=== PATIENT | female | born 1935 | race Caucasian/White ===

== ENCOUNTER 2019-03-17 11:24 | Inpatient (IN) ==
[2019-03-17] MEDS ORDERED: Aspirin 81 MG TAB.CHEW PO ONE (11:50)
[2019-03-17] MEDS ORDERED: Nitroglycerin 0.4 MG TAB.SUBL SL PRN (11:50)
[2019-03-17 11:59] LABS: Basophils % 0.5 %; Eosinophils # 0.1 K/mcL (0.0-0.6); Eosinophils % 1.1 %; Hematocrit 38.5 % (35.3-44.9); Hemoglobin 12.8 g/dL (11.5-15.4); Immature Granulocytes % 0.2 % (0-4); Lymphocytes # 0.8 K/mcL (0.6-4.6); Lymphocytes % 10.1 %; Mean Corpuscular HGB Conc 33.2 g/dL (31.6-35.5); Mean Corpuscular Hemoglobin 30.1 pg (28.0-33.3); Mean Corpuscular Volume 90.6 fL (83.0-100.0); Mean Platelet Volume 9.6 fL (9.4-12.4); Monocytes # 0.8 K/mcL (0.0-1.3); Monocytes % 10.3 %; Neutrophils # 6.2 K/mcL (1.6-8.9); Platelet Count 229 K/mcL (140-400); Red Blood Count 4.25 M/mcL (3.82-4.97); Red Cell Distribution Width 13.3 % (11.5-14.5); Segmented Neutrophils % 77.8 %
[2019-03-17 12:23] LABS: BUN/Creatinine Ratio 20 (6-26); Blood Urea Nitrogen 24 mg/dL (8-23); Calcium 9.6 mg/dL (8.6-10.3); Carbon Dioxide 29 mEq/L (23-29); Chloride 97 mEq/L (98-107); Glucose 125 mg/dL (70-105); Osmolality,Calculated 286 (280-300); Potassium 3.8 mEq/L (3.5-5.1); Sodium 135 mEq/L (136-145); eGFR For African Americans 53 (> 60); eGFR For Non-African Americans 44 (> 60)
[2019-03-17 12:24] LABS: Troponin I < 0.03 ng/mL (< 0.04)
[2019-03-17] MEDS ORDERED: *HR* LORazepam 1 MG TABLET PO PRN (15:04)
[2019-03-17] MEDS ORDERED: Acetaminophen 325 MG TABLET PO PRN (15:32)
[2019-03-17] MEDS: Insulin LISPRO 300 UNITS/3 ML VIAL SQ SCH ×2 (17:19→20:29)
[2019-03-17] MEDS ORDERED: tiZANidine 4 MG TABLET PO ONE (20:00)
[2019-03-17] MEDS ORDERED: *HR* LORazepam 1 MG TABLET PO SCH (21:00)
[2019-03-18 05:32] LABS: BUN/Creatinine Ratio 22 (6-26); Blood Urea Nitrogen 27 mg/dL (8-23); Calcium 9.4 mg/dL (8.6-10.3); Carbon Dioxide 28 mEq/L (23-29); Chloride 97 mEq/L (98-107); Glucose 105 mg/dL (70-105); Osmolality,Calculated 283 (280-300); Potassium 3.7 mEq/L (3.5-5.1); Sodium 134 mEq/L (136-145); Troponin I < 0.03 ng/mL (< 0.04); eGFR For African Americans 50 (> 60); eGFR For Non-African Americans 41 (> 60)
[2019-03-18] MEDS ORDERED: Regadenoson 0.4 MG/5 ML SYRINGE IVP ONE (06:17)
[2019-03-18] MEDS: Insulin LISPRO 300 UNITS/3 ML VIAL SQ SCH ×4 (07:16→20:47)
[2019-03-18] MEDS ORDERED: D5% in Water 1,000 ML IVC PRN (08:07)
[2019-03-18] MEDS ORDERED: Dextrose Gel 15 GM/37.5 ML TUBE PO PRN ×2 (08:07)
[2019-03-18] MEDS ORDERED: *HR* Dextrose 50 % in Water (Syg) 50 ML SYRINGE IVP PRN (08:07)
[2019-03-18] MEDS ORDERED: NON-FORMULARY MEDICATION 1 EACH EACH (Ezetimibe [Zetia] 10 MG) PO SCH (09:00)
[2019-03-18] MEDS: Valsartan 160 MG TABLET PO SCH (12:01)
[2019-03-18] MEDS: amLODIPine 5 MG TABLET PO SCH (12:01)
[2019-03-18] MEDS: Aspirin Enteric Coated 81 MG Tablet PO SCH (12:02)
[2019-03-18] MEDS: hydroCHLOROthiazide 25 MG TABLET PO SCH (12:02)
[2019-03-18] MEDS: predniSONE 20 MG TABLET PO SCH (13:08)
[2019-03-18] MEDS ORDERED: Acetaminophen/Aspirin/Caffeine TABLET PO PRN (13:13)
[2019-03-18] MEDS: *HR* Heparin 5,000 UNIT/ML VIAL SQ SCH (20:48)
[2019-03-18] MEDS ORDERED: Insulin DETEMIR 100 UNIT/ML X5UNITS SQ SCH (21:00)
[2019-03-19] MEDS: *HR* Heparin 5,000 UNIT/ML VIAL SQ SCH ×2 (05:20→13:51)
[2019-03-19 06:09] LABS: Basophils % 0.1 %; Eosinophils % 0.1 %; Hematocrit 36.7 % (35.3-44.9); Immature Granulocytes % 0.5 % (0-4); Lymphocytes # 0.7 K/mcL (0.6-4.6); Lymphocytes % 9.1 %; Mean Corpuscular HGB Conc 35.4 g/dL (31.6-35.5); Mean Corpuscular Hemoglobin 30.4 pg (28.0-33.3); Mean Corpuscular Volume 85.9 fL (83.0-100.0); Mean Platelet Volume 9.5 fL (9.4-12.4); Monocytes # 0.6 K/mcL (0.0-1.3); Monocytes % 7.8 %; Neutrophils # 6.2 K/mcL (1.6-8.9); Platelet Count 235 K/mcL (140-400); Red Blood Count 4.27 M/mcL (3.82-4.97); Red Cell Distribution Width 13.1 % (11.5-14.5); Segmented Neutrophils % 82.4 %; White Blood Count 7.6 K/mcL (4.3-11.1)
[2019-03-19 06:32] LABS: Calcium 9.6 mg/dL (8.6-10.3); Magnesium 1.8 mg/dL (1.6-2.6); Potassium 3.7 mEq/L (3.5-5.1)
[2019-03-19] MEDS: amLODIPine 5 MG TABLET PO SCH (07:49)
[2019-03-19] MEDS: Valsartan 160 MG TABLET PO SCH (07:49)
[2019-03-19] MEDS: hydroCHLOROthiazide 25 MG TABLET PO SCH (07:51)
[2019-03-19] MEDS: predniSONE 20 MG TABLET PO SCH (07:51)
[2019-03-19] MEDS: Aspirin Enteric Coated 81 MG Tablet PO SCH (07:51)
[2019-03-19 08:48] LABS: Estimated Average Glucose 151 mg/dl
[2019-03-19] MEDS: Insulin LISPRO 300 UNITS/3 ML VIAL SQ SCH ×2 (09:04→12:08)
[2019-03-19 16:10] VITALS: BP 116/62
[2019-03-20] MEDS ORDERED: Ergocalciferol (VIT D2) 50,000 UNIT (1.25MG) CAP PO SCH (18:00)
== END 2019-03-19 16:40 | disposition short-term general hospital (02) | DRG 303 ==
LOC: 2ANU 11:24 → EMEROOARM 11:24 → 2ANU 15:17 → SUATTDRO 03-18 15:30
PROVIDERS: ADMIT Internal Medicine; ATTEND Pharmacist

== ENCOUNTER 2019-07-24 15:47 | Inpatient (IN) ==
[2019-07-24 16:31] LABS: Basophils % 0.5 %; Eosinophils # 0.4 K/mcL (0.0-0.6); Eosinophils % 5.9 %; Hematocrit 34.4 % (35.3-44.9); Hemoglobin 11.2 g/dL (11.5-15.4); Immature Granulocytes % 0.3 % (0-4); Lymphocytes # 0.6 K/mcL (0.6-4.6); Lymphocytes % 8.5 %; Mean Corpuscular HGB Conc 32.6 g/dL (31.6-35.5); Mean Corpuscular Hemoglobin 29.7 pg (28.0-33.3); Mean Corpuscular Volume 91.2 fL (83.0-100.0); Mean Platelet Volume 9.9 fL (9.4-12.4); Monocytes # 1.1 K/mcL (0.0-1.3); Monocytes % 14.9 %; Neutrophils # 5.1 K/mcL (1.6-8.9); Platelet Count 165 K/mcL (140-400); Red Blood Count 3.77 M/mcL (3.82-4.97); Red Cell Distribution Width 13.3 % (11.5-14.5); Segmented Neutrophils % 69.9 %; White Blood Count 7.3 K/mcL (4.3-11.1)
[2019-07-24] MEDS ORDERED: Azithromycin 500 MG in 0.9 % Sodium Chloride 250 ML IVPB ONE (16:40)
[2019-07-24] MEDS ORDERED: cefTRIAXone 1,000 MG in Water for inj. (sterile) 10 ML IVP ONE (16:40)
[2019-07-24 17:01] LABS: BUN/Creatinine Ratio 16 (6-26); Blood Urea Nitrogen 15 mg/dL (8-23); Calcium 9.4 mg/dL (8.6-10.3); Carbon Dioxide 26 mEq/L (23-29); Chloride 97 mEq/L (98-107); Glucose 90 mg/dL (70-105); Osmolality,Calculated 272 (280-300); Potassium 4.1 mEq/L (3.5-5.1); Sodium 131 mEq/L (136-145); Troponin I 0.04 ng/mL (< 0.04); eGFR For African Americans > 60 (> 60); eGFR For Non-African Americans 58 (> 60)
[2019-07-24] MEDS ORDERED: Aspirin 325 MG TABLET PO ONE (17:12)
[2019-07-24] MEDS ORDERED: Furosemide 20 MG/2 ML VIAL IVP ONE (17:13)
[2019-07-24] MEDS: *HR* LORazepam 1 MG TABLET PO PRN (23:12)
[2019-07-24] MEDS: amLODIPine 5 MG TABLET PO SCH (23:12)
[2019-07-24] MEDS: carvediloL 25 MG TABLET PO SCH (23:12)
[2019-07-25] MEDS: *HR* Heparin 5,000 UNIT/ML VIAL SQ SCH ×4 (01:15→21:34)
[2019-07-25 06:01] LABS: Basophils % 0.6 %; Eosinophils # 0.3 K/mcL (0.0-0.6); Eosinophils % 5.5 %; Immature Granulocytes % 0.3 % (0-4); Lymphocytes # 0.6 K/mcL (0.6-4.6); Mean Corpuscular HGB Conc 33.1 g/dL (31.6-35.5); Mean Corpuscular Hemoglobin 30.1 pg (28.0-33.3); Mean Corpuscular Volume 90.9 fL (83.0-100.0); Monocytes # 0.9 K/mcL (0.0-1.3); Monocytes % 13.7 %; Neutrophils # 4.4 K/mcL (1.6-8.9); Platelet Count 145 K/mcL (140-400); Red Blood Count 3.19 M/mcL (3.82-4.97); Red Cell Distribution Width 13.4 % (11.5-14.5); Segmented Neutrophils % 70.9 %; White Blood Count 6.2 K/mcL (4.3-11.1)
[2019-07-25 06:03] LABS: Hemoglobin 9.6 g/dL (11.5-15.4)
[2019-07-25 06:25] LABS: Alanine Aminotransferase 14 Units/L (7-52); Albumin 3.3 g/dL (3.5-5.7); Albumin/Globulin Ratio 1.6 (1.1-2.2); Alkaline Phosphatase 58 Units/L (34-104); Aspartate Amino Transferase 15 Units/L (13-39); BUN/Creatinine Ratio 17 (6-26); Bilirubin,Total 0.4 mg/dL (0.3-1.0); Blood Urea Nitrogen 15 mg/dL (8-23); Calcium 8.7 mg/dL (8.6-10.3); Carbon Dioxide 29 mEq/L (23-29); Chloride 98 mEq/L (98-107); Globulin 2.1 g/dL (2.4-3.5); Glucose 88 mg/dL (70-105); Osmolality,Calculated 276 (280-300); Potassium 3.5 mEq/L (3.5-5.1); Sodium 133 mEq/L (136-145); Total Protein 5.4 g/dL (6.4-8.9); eGFR For African Americans > 60 (> 60); eGFR For Non-African Americans 60 (> 60)
[2019-07-25 06:26] LABS: Troponin I 0.05 ng/mL (< 0.04)
[2019-07-25] MEDS ORDERED: Ipratropium/Albuterol Neb 3 ML IH PRN (06:45)
[2019-07-25] MEDS ORDERED: Insulin LISPRO 300 UNITS/3 ML VIAL SQ SCH ×2 (07:30→12:00)
[2019-07-25] MEDS: Furosemide 20 MG/2 ML VIAL IVP SCH ×2 (10:02→21:34)
[2019-07-25] MEDS: Aspirin Enteric Coated 81 MG Tablet PO SCH (10:03)
[2019-07-25] MEDS: carvediloL 25 MG TABLET PO SCH ×2 (10:03→17:05)
[2019-07-25] MEDS: Valsartan 160 MG TABLET PO SCH (10:04)
[2019-07-25] MEDS: amLODIPine 5 MG TABLET PO SCH (10:04)
[2019-07-25] MEDS: Fluticasone Propionate Nasal 50 MCG/SPRAY BOTTLE NS SCH (10:12)
[2019-07-25] MEDS: (Ezetimibe [Zetia] 10 MG) PO SCH (10:13)
[2019-07-25] MEDS: Ipratropium/Albuterol Neb 3 ML IH SCH ×4 (10:25→20:25)
[2019-07-25] MEDS: predniSONE 20 MG TABLET PO SCH (10:27)
[2019-07-25 11:29] LABS: Adenovirus Not Detected (Not Detect); Bordetella Pertussis Not Detected (Not Detect); Chlamydophila pneumoniae Not Detected (Not Detect); Coronavirus 229E Not Detected (Not Detect); Coronavirus HKU1 Not Detected (Not Detect); Coronavirus NL63 Not Detected (Not Detect); Coronavirus OC43 Not Detected (Not Detect); Human Metapneumovirus Not Detected (Not Detect); Human Rhinovirus/Enterovirus Not Detected (Not Detect); Influenza A Subtype 2009 H1 Not Detected (Not Detect); Influenza B Not Detected (Not Detect); Mycoplasma pneumoniae Not Detected (Not Detect); Parainfluenza Virus 1 Not Detected (Not Detect); Parainfluenza Virus 2 Not Detected (Not Detect); Parainfluenza Virus 3 Not Detected (Not Detect); Parainfluenza Virus 4 Not Detected (Not Detect); Respiratory Syncytial Virus Not Detected (Not Detect)
[2019-07-25] MEDS ORDERED: Isovue-370 500 ML BOTTLE IVP ONE ×2 (13:19→16:08)
[2019-07-25] MEDS ORDERED: Azithromycin 250 MG TABLET PO SCH (13:45)
[2019-07-25] MEDS: cefTRIAXone 1,000 MG in Water for inj. (sterile) 10 ML IVP SCH (15:12)
[2019-07-25 15:53] LABS: ABG Base Excess 4 mEq/L (-2 to 3); ABG HCO3 29 mEq/L (21-27); ABG Oxygen Saturation 89 % (95-98); ABG PCO2 42 mmHg (35-45); ABG PH 7.44 pH Units (7.32-7.45); ABG PO2 54 mmHg (85-104); ABG TCO2 30 mEq/L (20-26)
[2019-07-25] MEDS: Insulin LISPRO 300 UNITS/3 ML VIAL SQ SCH ×2 (17:04→21:36)
[2019-07-25] MEDS: *HR* LORazepam 1 MG TABLET PO PRN (21:47)
[2019-07-26] MEDS: Ipratropium/Albuterol Neb 3 ML IH SCH ×7 (00:19→23:47)
[2019-07-26 05:28] LABS: Hematocrit 28.5 % (35.3-44.9); Hemoglobin 9.5 g/dL (11.5-15.4); Mean Corpuscular HGB Conc 33.3 g/dL (31.6-35.5); Mean Corpuscular Hemoglobin 30.6 pg (28.0-33.3); Mean Corpuscular Volume 91.9 fL (83.0-100.0); Mean Platelet Volume 10.5 fL (9.4-12.4); Platelet Count 158 K/mcL (140-400); Red Cell Distribution Width 13.5 % (11.5-14.5)
[2019-07-26 05:47] LABS: Potassium 3.7 mEq/L (3.5-5.1)
[2019-07-26] MEDS: *HR* Heparin 5,000 UNIT/ML VIAL SQ SCH ×3 (05:49→21:47)
[2019-07-26] MEDS: amLODIPine 5 MG TABLET PO SCH (10:00)
[2019-07-26] MEDS: predniSONE 20 MG TABLET PO SCH (10:00)
[2019-07-26] MEDS: Valsartan 160 MG TABLET PO SCH (10:00)
[2019-07-26] MEDS: Aspirin Enteric Coated 81 MG Tablet PO SCH (10:00)
[2019-07-26] MEDS: Furosemide 20 MG/2 ML VIAL IVP SCH (10:01)
[2019-07-26] MEDS: carvediloL 25 MG TABLET PO SCH ×2 (10:01→17:39)
[2019-07-26] MEDS: cefTRIAXone 1,000 MG in Water for inj. (sterile) 10 ML IVP SCH (10:02)
[2019-07-26] MEDS: (Ezetimibe [Zetia] 10 MG) PO SCH (10:03)
[2019-07-26] MEDS: Fluticasone Propionate Nasal 50 MCG/SPRAY BOTTLE NS SCH (10:03)
[2019-07-26] MEDS: Insulin LISPRO 300 UNITS/3 ML VIAL SQ SCH ×4 (10:04→21:46)
[2019-07-26] MEDS ORDERED: Furosemide 20 MG TABLET PO SCH (17:00)
[2019-07-26] MEDS: *HR* LORazepam 1 MG TABLET PO PRN (21:47)
[2019-07-27] MEDS: Ipratropium/Albuterol Neb 3 ML IH SCH ×6 (03:20→23:54)
[2019-07-27] MEDS: *HR* Heparin 5,000 UNIT/ML VIAL SQ SCH ×3 (05:25→21:48)
[2019-07-27 06:35] LABS: Hematocrit 28.4 % (35.3-44.9); Hemoglobin 9.1 g/dL (11.5-15.4); Mean Corpuscular Hemoglobin 29.7 pg (28.0-33.3); Mean Corpuscular Volume 92.8 fL (83.0-100.0); Mean Platelet Volume 10.1 fL (9.4-12.4); Platelet Count 189 K/mcL (140-400); Red Blood Count 3.06 M/mcL (3.82-4.97); Red Cell Distribution Width 13.3 % (11.5-14.5); White Blood Count 5.7 K/mcL (4.3-11.1)
[2019-07-27 06:55] LABS: Calcium 8.7 mg/dL (8.6-10.3); Potassium 4.2 mEq/L (3.5-5.1)
[2019-07-27] MEDS: Insulin LISPRO 300 UNITS/3 ML VIAL SQ SCH ×4 (08:19→21:49)
[2019-07-27] MEDS ORDERED: Furosemide 20 MG TABLET PO SCH (09:00)
[2019-07-27] MEDS: Aspirin Enteric Coated 81 MG Tablet PO SCH (09:06)
[2019-07-27] MEDS: carvediloL 25 MG TABLET PO SCH ×2 (09:06→16:28)
[2019-07-27] MEDS: Valsartan 160 MG TABLET PO SCH (09:08)
[2019-07-27] MEDS: Fluticasone Propionate Nasal 50 MCG/SPRAY BOTTLE NS SCH (09:09)
[2019-07-27] MEDS: (Ezetimibe [Zetia] 10 MG) PO SCH (09:11)
[2019-07-27] MEDS: amLODIPine 5 MG TABLET PO SCH (09:11)
[2019-07-27] MEDS: predniSONE 20 MG TABLET PO SCH (09:12)
[2019-07-27] MEDS: cefTRIAXone 1,000 MG in Water for inj. (sterile) 10 ML IVP SCH (09:53)
[2019-07-27] MEDS: *HR* LORazepam 1 MG TABLET PO PRN (21:54)
[2019-07-28 03:40] LABS: BUN/Creatinine Ratio 29 (6-26); Blood Urea Nitrogen 29 mg/dL (8-23); Calcium 8.7 mg/dL (8.6-10.3); Carbon Dioxide 27 mEq/L (23-29); Chloride 96 mEq/L (98-107); Glucose 96 mg/dL (70-105); Osmolality,Calculated 278 (280-300); Potassium 4.1 mEq/L (3.5-5.1); Sodium 131 mEq/L (136-145); eGFR For African Americans > 60 (> 60); eGFR For Non-African Americans 52 (> 60)
[2019-07-28] MEDS: Ipratropium/Albuterol Neb 3 ML IH SCH ×5 (04:01→20:07)
[2019-07-28] MEDS: *HR* Heparin 5,000 UNIT/ML VIAL SQ SCH ×3 (05:55→20:37)
[2019-07-28] MEDS ORDERED: Furosemide 20 MG TABLET PO PRN (07:47)
[2019-07-28] MEDS: Insulin LISPRO 300 UNITS/3 ML VIAL SQ SCH ×4 (08:00→20:33)
[2019-07-28] MEDS: carvediloL 25 MG TABLET PO SCH ×2 (09:11→18:02)
[2019-07-28] MEDS: Aspirin Enteric Coated 81 MG Tablet PO SCH (09:12)
[2019-07-28] MEDS: Valsartan 160 MG TABLET PO SCH (09:12)
[2019-07-28] MEDS: amLODIPine 5 MG TABLET PO SCH (09:12)
[2019-07-28] MEDS: predniSONE 20 MG TABLET PO SCH (09:12)
[2019-07-28] MEDS: cefTRIAXone 1,000 MG in Water for inj. (sterile) 10 ML IVP SCH ×2 (09:12→11:43)
[2019-07-28] MEDS: (Ezetimibe [Zetia] 10 MG) PO SCH (09:14)
[2019-07-28] MEDS: Fluticasone Propionate Nasal 50 MCG/SPRAY BOTTLE NS SCH (09:15)
[2019-07-28] MEDS: Furosemide 20 MG/2 ML VIAL IVP SCH (20:36)
[2019-07-28] MEDS: *HR* LORazepam 1 MG TABLET PO PRN (20:41)
[2019-07-28] MEDS ORDERED: Furosemide 20 MG/2 ML VIAL IVP SCH (21:00)
[2019-07-29] MEDS: Ipratropium/Albuterol Neb 3 ML IH SCH ×7 (00:18→23:47)
[2019-07-29 02:33] LABS: Calcium 8.6 mg/dL (8.6-10.3); Potassium 4.1 mEq/L (3.5-5.1)
[2019-07-29] MEDS: *HR* Heparin 5,000 UNIT/ML VIAL SQ SCH ×3 (05:27→22:12)
[2019-07-29] MEDS: Insulin LISPRO 300 UNITS/3 ML VIAL SQ SCH ×4 (09:15→22:18)
[2019-07-29] MEDS: Fluticasone Propionate Nasal 50 MCG/SPRAY BOTTLE NS SCH (09:27)
[2019-07-29] MEDS: amLODIPine 5 MG TABLET PO SCH (09:28)
[2019-07-29] MEDS: predniSONE 20 MG TABLET PO SCH (09:28)
[2019-07-29] MEDS: Furosemide 20 MG/2 ML VIAL IVP SCH ×2 (09:28→22:12)
[2019-07-29] MEDS: carvediloL 25 MG TABLET PO SCH ×2 (09:29→16:58)
[2019-07-29] MEDS: Valsartan 160 MG TABLET PO SCH (09:29)
[2019-07-29] MEDS: Aspirin Enteric Coated 81 MG Tablet PO SCH (09:29)
[2019-07-29] MEDS: hydrALAZINE 25 MG TABLET PO SCH ×2 (15:09→22:11)
[2019-07-29] MEDS: *HR* LORazepam 1 MG TABLET PO PRN (22:11)
[2019-07-30] MEDS: Ipratropium/Albuterol Neb 3 ML IH SCH ×3 (03:52→11:24)
[2019-07-30 05:00] LABS: Calcium 8.7 mg/dL (8.6-10.3); Potassium 4.2 mEq/L (3.5-5.1)
[2019-07-30] MEDS: *HR* Heparin 5,000 UNIT/ML VIAL SQ SCH (05:48)
[2019-07-30 07:38] VITALS: BP 175/83
[2019-07-30] MEDS: carvediloL 25 MG TABLET PO SCH (09:38)
[2019-07-30] MEDS: predniSONE 20 MG TABLET PO SCH (09:38)
[2019-07-30] MEDS: hydrALAZINE 25 MG TABLET PO SCH (09:38)
[2019-07-30] MEDS: Aspirin Enteric Coated 81 MG Tablet PO SCH (09:39)
[2019-07-30] MEDS: Valsartan 160 MG TABLET PO SCH (09:39)
[2019-07-30] MEDS: amLODIPine 5 MG TABLET PO SCH (09:39)
[2019-07-30] MEDS: Furosemide 20 MG/2 ML VIAL IVP SCH (09:40)
[2019-07-30] MEDS: Fluticasone Propionate Nasal 50 MCG/SPRAY BOTTLE NS SCH (09:52)
[2019-07-30] MEDS: Insulin LISPRO 300 UNITS/3 ML VIAL SQ SCH (09:52)
== END 2019-07-30 13:26 | disposition home or self-care (01) | DRG 280 ==
LOC: 2NENU 15:47 → EMEROOARM 15:47 → SUATTDRO 18:29 → 2NENU 19:30 → SUATTDRO 07-25 13:36
PROVIDERS: ADMIT Internal Medicine; ATTEND Internal Medicine